=== PATIENT | female | born 1960 | race Caucasian/White ===

== ENCOUNTER 2017-04-01 17:38 | Emergency (ER) | payer OTHER ==
[~2017-04-01] VITALS: Ht 160 cm; Wt 54.5 kg
[2017-04-01 17:42] VITALS: BP 149/86; PULSE 110; RESP 17; O2SAT 94
[2017-04-01] MEDS ORDERED: 0.9% Sodium Chloride 1,000 ML IV ONE (17:59)
[2017-04-01] MEDS ORDERED: Ondansetron 2 mg/mL 2 mL Inj IVPUSH ONE (18:00)
[2017-04-01] MEDS ORDERED: HYDROmorphone 1 mg/mL Inj IVPUSH ONE (18:00)
--- NOTE | 2017-04-01 18:03 | ED.REPORT ---
HPI-General Illness Date of Service Apr 01, 2017 ED Provider: Nato Anaya MD Patient is a 57 year old female with a history of HIV who presents to the ED complaining of rectal bleeding. 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 She denies fever or vomiting. The patient reports that she had 3 bowel movements today that were bright red and mixed in the stool. She states that she has had intermittent rectal bleeding for the past few years but it was worse today. She is not on any blood thinners. She denies any history of hemorrhoids, anal fissures, inflammatory bowel disease or history of diverticulitis. She reports that she has had intermittent streaking of bright red blood in her stool for many years however it was slightly worse today. Nursing Notes Stated Complaint: RECTAL BLEEDING AND ABD PAIN Chief Complaint: Female Abdominal Pain Nursing Notes Reviewed: Yes Allergies: Coded Allergies: codeine (Verified Allergy, Severe, HIVES, 03/22/13) diphenhydramine (Verified Allergy, Severe, 07/29/09) propoxyphene (Verified Allergy, Severe, 07/29/09) Replaces DARVOCET-N 10 acetaminophen (Verified Adverse Reaction, Severe, LIVER FAILURE, 07/29/09) ibuprofen (Verified Adverse Reaction, Severe, GI, 07/29/09) Uncoded Allergies: Codeine (Allergy, Severe, HIVES, 03/27/05) Diphenhydramine (Allergy, Severe, 03/27/05) Propoxyphene (Allergy, Severe, 03/27/05) Replaces DARVOCET-N 10 SULFA (Allergy, Severe, 07/29/09) Sulfa (Allergy, Severe, 03/27/05) Acetaminophen (Adverse Reaction, Severe, LIVER FAILURE, 03/27/05) Ibuprofen (Adverse Reaction, Severe, GI, 03/27/05) Scheduled Efavirenz/Emtricitab/Tenofovir (Atripla) 1 Each Tablet 1 TAB PO DAILY General Time Seen by MD: 17:54 Chief Complaint Other (rectal bleeding) Hx Obtained From: Patient Arrived By: Walk-in Sudden in Onset?: No Onset Occurred: More than a week ago... (>6 months) Symptom Duration: Intermittent Location: : Abdomen Quality: Painful Severity: Current: Moderate Recent Healthcare: No recent doctor visit, No recent hospitalization Past Medical History Past Medical History HIV chronic neck pain Past Surgical History laparotomy Reports: Smoking History Current Every Day Smoker Social History Other Social History: Good social support, Ambulatory Status Independent Review of Systems Full Review of Systems Constitutional: Denies: Chills, Fever Respiratory: Denies: Non-productive cough, Shortness of breath GI: Reports: Abdominal pain, Diarrhea, Hematochezia, Denies: Bloody/tarry stool, Vomiting Complete sys rev & neg: except as marked. Physical Exam Vital Signs Vital Signs Date Time Temp Pulse Resp B/P Pulse Ox O2 Delivery O2 Flow Rate FiO2 04/01/17 19:28 36.6 83 16 129/80 94 Room Air 04/01/17 19:06 36.6 83 16 129/80 94 Room Air 04/01/17 17:42 36.5 110 17 149/86 94 Room Air Initial VS: Reviewed General/Constitutional: Awake, Alert, No acute distress Head / Eyes: Atraumatic, Normocephalic, PERRL, EOMI Respiratory / Chest: Atraumatic, Breath sounds NL, Breath sounds = bilat, No respiratory distress slighlty coarse breath sounds bilaterally Cardiovascular: Heart rate NL, Regular rhythm, Heart sounds NL Abdomen: Atraumatic, Soft, Non-tender, No guarding, No rebound Skin: Atraumatic, Color NL, No rash, Warm, Dry Rectum / Perineum: Atraumatic, No fissures, No hemorrhoids normal brown stool weakly guaiac positive Neurologic: Oriented X3, Speech NL, No motor deficits, No sensory deficits Psychiatric: Affect NL, Mood NL Interpretation & Diagnostics Lab Results Interpretation Result Diagram: 04/01/17181404/01/171814 Test 04/01/17 18:15 White Blood Count 4.7th/mm3 (3.8-10.1) Red Blood Count 3.75mil/mm3 (3.90-5.20) Hemoglobin 13.4g/dL (12.0-15.6) Hematocrit 37.3% (35.0-46.0) Mean Corpuscular Volume 99.5fL (81-100) Mean Corpuscular Hemoglobin 35.7pg (27.0-35.0) Mean Corpuscular Hemoglobin Concent 35.9% (32.0-37.0) Red Cell Distribution Width 11.4% (12.3-15.4) Platelet Count 265bil/L (150-400) Neutrophils (%) (Auto) 39.4% (40-74) Lymphocytes (%) (Auto) 44.3% (14-46) Monocytes (%) (Auto) 9.7% (4-12) Eosinophils (%) (Auto) 5.1% (0-5) Basophils (%) (Auto) 1.3% (0-3) Prothrombin Time 10.5sec (8.1-12.5) Prothromb Time International Ratio 0.98ratio Sodium Level 121mEq/L (134-144) Potassium Level 3.9mEq/L (3.5-5.2) Chloride Level 83mEq/L (97-108) Carbon Dioxide Level 22mmol/L (18-29) Blood Urea Nitrogen 9mg/dL (6-24) Creatinine 0.37mg/dL (0.57-1.00) Estimat Glomerular Filtration Rate 259mL/min (>59) Glucose Level 94mg/dL (60-99) Calcium Level 8.8mg/dL (8.5-10.1) Total Bilirubin 0.3mg/dL (0.0-1.2) Aspartate Amino Transf (AST/SGOT) 21U/L (0-50) Alanine Aminotransferase (ALT/SGPT) 14U/L (0-32) Alkaline Phosphatase 109U/L (25-150) Total Protein 7.5g/dL (6.4-8.4) Albumin 4.3g/dL (3.4-5.0) Hold Bobo Top Tube Received (Received) ECG Interpretation ECG Interpretation: normal axis normal interval no acute T wave abnormalities abnormal R wave progression borderline prolonged HI interval no previous EKG for comparison Time: 18:17 Interpreted by: ED physician Normal ECG Interpretation: Normal rate (93), Normal sinus rhythm Re-Eval/Medical Decision Med Decision/Clinical Course Patient is a 57 year old female with a history of HIV who presents to the ED complaining of rectal bleeding. 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 She denies fever or vomiting. The patient reports that she had 3 bowel movements today that were bright red and mixed in the stool. She states that she has had intermittent rectal bleeding for the past few years but it was worse today. She is not on any blood thinners. She denies any history of hemorrhoids, anal fissures, inflammatory bowel disease or history of diverticulitis. She reports that she has had intermittent streaking of bright red blood in her stool for many years however it was slightly worse today. Here in the emergency department the patient is afebrile, hemodynamically stable with relatively benign abdominal examination. Rectal examination reveals normal brown stool that is guaiac positive. There are no hemorrhoids, anal fissures or obvious source of her bleeding. She was treated with the below medications: IV fluids, Zofran She was reevaluated thereafter and reported that her symptoms had significantly improved. Labs as below: CMP and CBC were unremarkable (RBC was slightly low but Hct was normal) Patient was discussed with GI physician on-call. Presentation was reviewed. Given that the patient has had no ongoing bleeding, hemodynamically stable with relatively normal hematocrit she is felt appropriate for discharge with strict return precautions and follow-up early next week for outpatient colonoscopy. I discussed this plan with the patient and she is comfortable with it. I discussed with the patient that should she develop any recurrent or ongoing GI bleeding, lightheadedness, melena or abdominal pain that she should come back to the emergency room for admission and emergent colonoscopy. She prefers outpatient management and I feel that this is appropriate at this moment. Prior to discharge follow-up and return precautions were reviewed in detail with the patient who verbalized understanding and agreement with the plan. The patient was discharged in stable condition. Time of Eval: 19:10 Re-Evaluation/Progress Note: Discussed plan for discharge. Patient understands and agrees to plan. All questions were addressed. 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 Lee, who will see the patient next week for a colonoscopy Counseled Regarding: Diagnosis, Lab results, Need for follow-up, When/why to return to ED Discharge & Departure Primary Impression: Rectal bleed Additional Impressions: HIV (human immunodeficiency virus infection) Pain with bowel movements Disposition: Home Discharge Condition All VS Reviewed: Yes Condition: Stable Patient Instructions: Rectal Bleeding (ED) Additional Instructions: Thank you for seeking care at the emergency room. Our primary goal today in the ED was to evaluate you for any life-threatening conditions. Your evaluation was reassuring. There was no signs of external hemorrhoids or fissures. We are unsure what is causing your bleeding at this time. You should follow-up with GI doctor, Dr. Beard early next week for a colonoscopy. There is a referral attached that gives you information to call the office on Tuesday to schedule an appointment. You should return to the ED immediately if you develop lightheadedness, weakness , feel like you're going to pass out, if you have a bowel movement and the toilet water is turning bright, thick red or any other concerning signs or symptoms. Thank you for letting us partake in your care today. Referrals: Americo Monteiro MD (PCP) Cecilio Lee MD Attestation Portions of this note were transcribed by Charline Myers. I, Dr. Anaya personally performed the history, physical exam and medical decision-making; I reviewed and confirmed the accuracy of the information in the transcribed note. Signed by: Chelsey Wilson, 04/01/17 and 2765 copies to: Cecilio Lee MD; Americo Monteiro MD, Beck O MD Apr 01, 2017 18:03 Yesi Myers Apr 01, 2017 18:09
[2017-04-01] MEDS ORDERED: EFAV1TAB PO (18:07)
[2017-04-01 18:25] LABS: BASOPHILS % (AUTO) 1.3 % (0-3); EOSINOPHILS % (AUTO) 5.1 % (0-5); MONOCYTES % (AUTO) 9.7 % (4-12); Mean Corpuscular Hemoglobin 35.7 pg (27.0-35.0); Mean Corpuscular Volume 99.5 fL (81-100); NEUTROPHILS % (AUTO) 39.4 % (40-74); Platelet Count 265 bil/L (150-400)
[2017-04-01 18:42] LABS: INR 0.98 ratio
[2017-04-01 19:06] VITALS: BP 129/80; PULSE 83; RESP 16; O2SAT 94
[2017-04-01 19:28] VITALS: BP 129/80; PULSE 83; RESP 16; O2SAT 94
== END 2017-04-01 19:29 | disposition home or self-care (01) ==
LOC: SED 17:38
DX: K62.5 Hemorrhage of anus and rectum (principal); R10.30 Lower abdominal pain, unspecified; F17.200 Nicotine dependence, unspecified, uncomplicated; Z21 Asymptomatic human immunodeficiency virus [HIV] infection status; Z88.5 Allergy status to narcotic agent; Z88.6 Allergy status to analgesic agent; Z88.8 Allergy status to other drugs, medicaments and biological substances
CPT/HCPCS: 36415; 80053; 82272; 85025; 85610; 86850; 93005; 96361; 96374; 96375; 99285; J1170; J2405; J7030